=== PATIENT | female | born 1980 | race Caucasian/White ===

== ENCOUNTER 2019-02-07 20:53 | Inpatient (IN) | payer BC ==
[~2019-02-07] VITALS: Ht 165.1 cm; Wt 128.8 kg
[2019-02-07] MEDS ORDERED: CLINDAMYCIN 900 MG/D5W (PMX) 50 ML IVPB STA (21:27)
[2019-02-07] MEDS ORDERED: SODIUM CHLORIDE 0.9% 1L BAG IV* STA (21:27)
[2019-02-07] MEDS ORDERED: VANCOMYCIN 1 GM (PMX) 250 ML IVPB STA (21:27)
[2019-02-07] MEDS ORDERED: PIPER-TAZO 3.375 GM IV (PMX) 100 ML IVPB STA (21:27)
[2019-02-07] MEDS ORDERED: ONDANSETRON 4 MG INJ IV STA (21:27)
[2019-02-07] MEDS ORDERED: morphine 4 MG/ML VIAL IV STA (21:27)
[2019-02-07] MEDS ORDERED: ACETAMINOPHEN 325 MG TAB PO STA (21:27)
[2019-02-07] MEDS ORDERED: ONDANSETRON 4 MG INJ IV PRN (22:30)
[2019-02-07] MEDS ORDERED: ACETAMINOPHEN 325 MG TAB PO PRN (22:30)
--- NOTE | 2019-02-07 22:42 | ERD ---
ER Documentation Chief Complaint Chief Complaint RLE swelling, pain. Pt reports rednessgoing up to thigh HPI 38-year-old female who presents to the emergency room complaining of right lower extremity swelling redness warmth and tenderness. Pain is noted to be 6 out of 10. She notes redness that is streaking up the medial aspect of the upper thigh. Patient denies any wounds or injuries. She does describe a history of lymphedema. Patient is a nondiabetic. Remote history of IV drug abuse but none recently. ROS All systems reviewed and are negative except as per history of present illness. Allergies Allergies: Coded Allergies: Bupivacaine (Verified Allergy, Mild, 07/21/07) Ketorolac (Verified Allergy, Mild, 07/21/07) PMhx/Soc History of Surgery: Yes (, cholecystectomy) Hx Alcohol Use: Yes (daily) Hx Substance Use: Yes (marijuana) Hx Tobacco Use: Yes Smoking Status: Current every day smoker FmHx Family History: No diabetes Physical Exam Vitals Vital Signs Date Temp Pulse Resp B/P (MAP) Pulse Ox O2 O2 Flow FiO2 Time Delivery Rate 02/07/19 98.4 124 20 158/95 97 20:56 (116) Physical Exam General: Well developed, well nourished, no acute distress Head: Normocephalic, atraumatic. Eyes: Pupils equally reactive, EOM intact ENT: Moist mucous membranes Neck: Supple, no lymphadenopathy Respiratory: Lungs clear bilaterally, no distress Cardiovascular: RRR, no murmurs, rubs, or gallops Abdominal: Soft, non-tender, non-distended, no peritoneal signs : Deferred MSK: Right lower extremity has significant lymphedema that is nonpitting with associated erythema warmth and tenderness with lymphangitic spread to the medial aspect of the mid thigh. Patient with difficult to palpate pulses secondary to significant edema but this is consistent bilaterally. No temperature deficit noted. Neurologic: Alert and oriented, moving all extremities, normal speech, no focal weakness, no cerebellar signs Skin: As noted above Psych: Normal mood Result Diagram: 02/07/19212902/07/192129 Results 24 hrs Laboratory Tests Test 02/07/19 21:29 02/07/19 21:30 02/07/19 22:33 POC Beta HCG, Qualitative NEGATIVE White Blood Count 17.1 10^3/ul Red Blood Count 4.43 10^6/ul Hemoglobin 12.2 g/dl Hematocrit 38.1 % Mean Corpuscular Volume 86.0 fl Mean Corpuscular Hemoglobin 27.5 pg Mean Corpuscular 32.0 g/dl Hemoglobin Concent Red Cell Distribution Width 15.9 % Platelet Count 438 10^3/UL Mean Platelet Volume 10.7 fl Immature Granulocytes % 5.500 % Neutrophils % 77.6 % Lymphocytes % 9.5 % Monocytes % 5.0 % Eosinophils % 1.8 % Basophils % 0.6 % Nucleated Red Blood Cells % 0.0 /100WBC Immature Granulocytes # 0.940 10^3/ul Neutrophils # 13.3 10^3/ul Lymphocytes # 1.6 10^3/ul Monocytes # 0.9 10^3/ul Eosinophils # 0.3 10^3/ul Basophils # 0.1 10^3/ul Nucleated Red Blood Cells # 0.0 10^3/ul Prothrombin Time 15.1 Sec Prothrombin Time Ratio 1.2 INR International Normalized Ratio 1.18 Activated Partial Thromboplast 41.2 Sec Time Sodium Level 137 mmol/L Potassium Level 4.0 mmol/L Chloride Level 99 mmol/L Carbon Dioxide Level 27 mmol/L Anion Gap 11 Blood Urea Nitrogen 22 mg/dl Creatinine 0.81 mg/dl Est Glomerular Filtrat Rate mL/min > 60 mL/min Glucose Level 118 mg/dl Calcium Level 8.9 mg/dl C-Reactive Protein Pending POC Venous Lactate 1.4 mmol/L Current Medications Medications Dose Sig/Tyrone Start Time Status Last (Trade) Ordered Route PRN Stop Time Admin Dose Reason Admin 650 mg ONCE STAT 02/07/19 DC 02/07/19 Acetaminophen PO 21:27 21:46 (Tylenol 02/07/19 21:29 Tab) Morphine 4 mg ONCE STAT 02/07/19 DC 02/07/19 Sulfate IV 21:27 21:46 (morphine) 02/07/19 21:29 Ondansetron 4 mg ONCE STAT 02/07/19 DC 02/07/19 HCl (Zofran IV 21:27 21:46 Inj) 02/07/19 21:29 Sodium 1,710 ml BOLUS OVER 2 02/07/19 DC 02/07/19 Chloride HOURS STAT 21:27 21:46 (NS) IV* 02/07/19 21:29 Vancomycin 250 ml @ ONCE STAT 02/07/19 HCl 125 mls/hr IVPB 21:27 02/07/19 23:26 Clindamycin 50 ml @ 50 ONCE STAT 02/07/19 DC 02/07/19 HCl/ mls/hr IVPB 21:27 22:34 Dextrose 02/07/19 22:26 Piperacillin 100 ml @ ONCE STAT 02/07/19 DC 02/07/19 Sod/ 200 mls/hr IVPB 21:27 21:46 Tazobactam 02/07/19 21:56 Sod Ondansetron 4 mg BRIDGE ORDER 02/07/19 HCl (Zofran PRN IV 22:30 Inj) NAUSEA/VOMITI 02/08/19 22:29 NG 650 mg ER BRIDGE 02/07/19 Acetaminophen PRN PO 22:30 (Tylenol .MILD PAIN 02/08/19 22:29 Tab) 1-3 OR TEMP Procedures/MDM EKG, MONITORS, & DIAGNOSTIC IMAGING: X-ray tib-fib: No acute process per radiologist read Right lower extremity duplex: Pending to be followed by admitting team LAB INTERPRETATION: I reviewed the laboratory testing and it shows normal lactic acid MEDICAL DECISION MAKING: Patient with obvious cellulitis of the right lower extremity with lower concern for DVT the ultrasound indicated given unilateral position. Patient with only 1 out of 4 Sirs criteria at triage. Code sepsis was not initiated for this reas on. The patient however was treated appropriately with fluid resuscitation based on ideal body weight ER COURSE: * Blood cultures prior to broad-spectrum antibiotics. A 30 cc/kg bolus of ideal body weight was provided. Analgesics provided. * Patient remains hemodynamically stable and will be admitted for further management. No signs or symptoms concerning for necrotizing fasciitis. CONSULTATION: None DISPOSITION PLAN: Medical surgical admission for management of cellulitis of the right lower extremity Accepting care team and consultations: I discussed the current laboratory data, diagnostic imaging and emergency care provided. Admitting team: Dr. Denis notified via [employer] Admitting team indication: Insurance directed Sepsis Documentation: Patient's infectious symptoms have not stabilized and the patient is at risk of rapid decompensation. The patient will be admitted for careful hydration, antibiotic therapy, and infectious source control. SEVERE SEPSIS CRITERIA: Infectious source: Right lower extremity cellulitis End organ damage indicated by: No criteria met SEPSIS MANAGEMENT Time of recognition of sepsis: Approximately 10:30 PM. Time of recognition of severe sepsis: No severe sepsis at this time. Time of recognition of septic shock: No septic shock at this time. 3 HOUR BUNDLE Blood cultures x 2 before broad-spectrum antibiotics: Yes 30 ml/kg NS bolus completed Initial lactate less than 2 Repeat lactate pending repeat SEPTIC SHOCK ASSESSMENT: No lactic acid > 4.0 No persistent hypotension (SBP < 90 or 40 mmHg drop, MAP < 65) despite 30 mL/kg IV fluid bolus VOLUME REASSESSMENT FOR SEPTIC SHOCK: The patient does not meet criteria for septic shock in the emergency department at this time PERSISTENT HYPOTENSION TREATMENT: Comfort care no Central line not Required Vasopressor started not required I considered further perfusion assessment with CVP measurement, SCVO2, bedside ultrasound volume assessment, passive leg raise, trial of further fluid bolus. And proceeded with 30 ml/kg fluid bolus of NSS, broad spectrum antibiotics, and admission. CRITICAL CARE Critical care time 35 minutes Emergent fluid management while maintaining close respiratory support. Provision of immediate and broad-spectrum antibiotic therapy. Simultaneous ass essment for possible sources in order to direct targeted therapy. Consideration for invasive and chemical support to prevent cardiopulmonary collapse. Critical care time is independent of procedures performed. Departure Diagnosis: Primary Impression: Cellulitis of right lower extremity Additional Impression: Sepsis Sepsis type: sepsis due to unspecified organism Qualified Codes: A41.9 - Sepsis, unspecified organism Condition: Stable ANDREW ANDERS MD February 07, 2019 22:42
[2019-02-07] MEDS ORDERED: HYDROmorphONE 0.5 MG/0.5 ML SYG IV STA (23:17)
[2019-02-08 01:55] VITALS: Ht 165.1 cm; Wt 128.8 kg
[2019-02-08 02:00] VITALS: BP 123/69; PULSE 18; PULSE 96; RESP 18
[2019-02-08] MEDS ORDERED: ONDANSETRON 4 MG INJ IV PRN (03:30)
[2019-02-08] MEDS ORDERED: ACETAMINOPHEN 325 MG TAB PO PRN (03:30)
[2019-02-08] MEDS ORDERED: VANCOMYCIN IV PER PHARMACY XX SCH (03:30)
[2019-02-08] MEDS ORDERED: NACL 0.9% 3 ML SYG IV SCH (03:30)
[2019-02-08] MEDS: SOD CHLORIDE 0.9% 1,000 ML IV SCH ×3 (04:15→21:50)
--- NOTE | 2019-02-08 06:37 | HP ---
Date/Time of Note Date/Time of Note DATE: 02/08/19 TIME: 06:34 Assessment/Plan VTE Prophylaxis Pharmacological prophylaxis: heparin Lines/Catheters IV Catheter Type (from Nrsg): Peripheral IV Assessment/Plan Assessment/Plan 38-year-old female with history of IVDU and skin popping presented with extensive right lower extremity cellulitis and found to be septic, as evidenced by leukocytosis and tachycardia PLAN -IV antibiotic, IV fluid -ID consult -Pain management -Additional imaging as needed -methadone (last time smoked heroin was 2 days ago, last IV 2 months ago) Result Diagram: 02/07/19212902/07/192129 Results 24hrs Laboratory Tests Test 02/07/19 21:29 02/07/19 21:30 02/07/19 22:33 02/08/19 01:03 POC Beta HCG, NEGATIVE Qualitative White Blood Count 17.1 H Red Blood Count 4.43 Hemoglobin 12.2 Hematocrit 38.1 Mean Corpuscular 86.0 Volume Mean Corpuscular 27.5 L Hemoglobin Mean Corpuscular 32.0 Hemoglobin Concent Red Cell 15.9 H Distribution Width Platelet Count 438 H Mean Platelet Volume 10.7 H Immature 5.500 H Granulocytes % Neutrophils % 77.6 H Lymphocytes % 9.5 L Monocytes % 5.0 Eosinophils % 1.8 Basophils % 0.6 Nucleated Red Blood 0.0 Cells % Immature 0.940 H Granulocytes # Neutrophils # 13.3 H Lymphocytes # 1.6 Monocytes # 0.9 Eosinophils # 0.3 Basophils # 0.1 Nucleated Red Blood 0.0 Cells # Erythrocyte 81 H Sedimentation Rate Prothrombin Time 15.1 H Prothrombin Time 1.2 Ratio INR International 1.18 Normalized Ratio Activated 41.2 H Partial Thromboplast Time Sodium Level 137 Potassium Level 4.0 Chloride Level 99 Carbon Dioxide Level 27 Anion Gap 11 Blood Urea Nitrogen 22 H Creatinine 0.81 Est Glomerular > 60 Filtrat Rate mL/min Glucose Level 118 Calcium Level 8.9 C-Reactive Protein 42.8 H POC Venous Lactate 1.4 Lactic Acid Level 1.9 Test 02/08/19 02:30 Lactic Acid Level 1.2 HPI/ROS Admit Date/Time Admit Date/Time February 07, 2019 at 22:30 Hx of Present Illness This is a 38-year-old female with no significant past medical history who presented to ER complaining of right lower extremity swelling, tenderness and erythema. Symptoms have been progressively getting worse for the past few days. When she presented to ER, she was tachycardic with a heart rate in the 120s, but afebrile. WBC 17,000. CRP 43. Lower extremity venous study negative for DVT. Right tibia/fibula x-ray without acute findings. PMH/Family/Social Past Medical History Medical History: other (see hpi) Medications Current Medications Ondansetron HCl (Zofran Inj) 4 mg BRIDGE ORDER PRN IV NAUSEA/VOMITING; Start 02/07/19 at 22:30; Stop 02/08/19 at 22:29 Acetaminophen (Tylenol Tab) 650 mg ER BRIDGE PRN PO .MILD PAIN 1-3 OR TEMP; Start 02/07/19 at 22:30; Stop 02/08/19 at 22:29 Sodium Chloride 1,000 ml @ 100 mls/hr Q10H IV Last administered on 02/08/19at 04:15; Admin Dose 100 MLS/HR; Start 02/08/19 at 03:04 IV Flush (NS 3 ml) 3 ml PER PROTOCOL IV ; Start 02/08/19 at 03:30 Ondansetron HCl (Zofran Inj) 4 mg Q6H PRN IV NAUSEA/VOMITING; Start 02/08/19 at 03:30 Acetaminophen (Tylenol Tab) 650 mg Q6H PRN PO .PAIN 1-3 OR TEMP; Start 02/08/19 at 03:30 Enoxaparin Sodium (Lovenox) 40 mg DAILY SC ; Start 02/08/19 at 09:00 Vancomycin HCl (Vanco Iv Per Pharmacy) VANCOMYCIN PER PHARMACY PER PROTOCOL XX ; Start 02/08/19 at 03:30 Cefepime HCl 50 ml @ 100 mls/hr Q12 IVPB ; Start 02/08/19 at 09:00 Vancomycin HCl 1.5 gm/Sodium Chloride 250 ml @ 83.333 mls/ hr Q12H IVPB ; Start 02/08/19 at 10:00 Coded Allergies: Bupivacaine (Verified Allergy, Mild, 07/21/07) Ketorolac (Verified Allergy, Mild, 07/21/07) Past Surgical History Past Surgical Hx: other (see hpi) Family History Significant Family History: no pertinent family hx Social History Alcohol Use: occasionally Smoking Status: Current every day smoker Drug Use: heroin Exam/Review of Systems Vital Signs Vitals Vital Signs Date Temp Pulse Resp B/P (MAP) Pulse Ox O2 O2 Flow FiO2 Time Delivery Rate 02/08/19 98.0 96 18 123/69 97 Room Air 02:00 (87) Intake and Output 02/07/19 02/07/19 02/08/19 1515:00 23:00 07:00 IntakeIntake Total 75 ml BalanceBalance 75 ml Exam Constitutional: distress Head: normocephalic, atraumatic Eyes: EOMI, PERRL Respiratory: clear to auscultation, normal air movement Cardiovascular: regular rate and rhythm, nl pulses Gastrointestinal: soft Extremities: other (right mayer erythema, tenderness. both tighes swollen) KEN GUTIÉRREZ MD February 08, 2019 06:37
[2019-02-08 08:34] VITALS: BP 126/72; PULSE 99; RESP 17
[2019-02-08] MEDS: ENOXAPARIN 40 MG/0.4 ML SYG SC SCH (09:14)
[2019-02-08] MEDS: CEFEPIME 1GM/50 ML (PMX) 50 ML IVPB SCH ×2 (09:14→20:18)
[2019-02-08] MEDS: VANCOMYCIN HCL 1.5 GM in SOD CHLORIDE 0.9% 250 ML IVPB SCH ×2 (10:16→21:50)
--- NOTE | 2019-02-08 10:48 | PN ---
Date/Time of Note Date/Time of Note DATE: 02/08/19 TIME: 10:46 Assessment/Plan VTE Prophylaxis SCD contraindicated: low risk/ambulating Pharmacological prophylaxis: LMWH Lines/Catheters IV Catheter Type (from Nrsg): Peripheral IV Assessment/Plan Hospital Course Assessment and plan 1. Right lower extremity cellulitis, likely staph, stable continue bank 2. Sirs due to cellulitis with leukocytosis/ tachycardia stable treat possible sepsis 3. Past substance abuse/heroin? 4. Tobacco abuse offer patch 5. History of nephrolithiasis 6. Obesity disorder 7. Mood disorder nonadherence? 8. Anemia Subjective: Lethargic mild pain no fever nausea vomiting. Denies any history of kidney or liver trouble. Objective: Vital signs stable Physical exam No pallor icterus adenopathy Regular tachycardic no m/r/g Clear Benign overweight Right and left lower extremity edema. Right lower extremity with erythema from toes to calf. Mild warmth Result Diagram: 02/08/19 0924 02/08/19 0924 Results 24hrs Laboratory Tests Test 02/07/19 21:29 02/07/19 21:30 02/07/19 22:33 02/08/19 01:03 POC Beta HCG, NEGATIVE Qualitative White Blood Count 17.1 H Red Blood Count 4.43 Hemoglobin 12.2 Hematocrit 38.1 Mean Corpuscular 86.0 Volume Mean Corpuscular 27.5 L Hemoglobin Mean Corpuscular 32.0 Hemoglobin Concent Red Cell 15.9 H Distribution Width Platelet Count 438 H Mean Platelet Volume 10.7 H Immature 5.500 H Granulocytes % Neutrophils % 77.6 H Lymphocytes % 9.5 L Monocytes % 5.0 Eosinophils % 1.8 Basophils % 0.6 Nucleated Red Blood 0.0 Cells % Immature 0.940 H Granulocytes # Neutrophils # 13.3 H Lymphocytes # 1.6 Monocytes # 0.9 Eosinophils # 0.3 Basophils # 0.1 Nucleated Red Blood 0.0 Cells # Erythrocyte 81 H Sedimentation Rate Prothrombin Time 15.1 H Prothrombin Time 1.2 Ratio INR International 1.18 Normalized Ratio Activated 41.2 H Partial Thromboplast Time Sodium Level 137 Potassium Level 4.0 Chloride Level 99 Carbon Dioxide Level 27 Anion Gap 11 Blood Urea Nitrogen 22 H Creatinine 0.81 Est Glomerular > 60 Filtrat Rate mL/min Glucose Level 118 Calcium Level 8.9 C-Reactive Protein 42.8 H POC Venous Lactate 1.4 Lactic Acid Level 1.9 Test 02/08/19 02:30 02/08/19 09:24 Lactic Acid Level 1.2 White Blood Count 14.9 H Red Blood Count 4.18 L Hemoglobin 11.6 L Hematocrit 36.8 L Mean Corpuscular 88.0 Volume Mean Corpuscular 27.8 L Hemoglobin Mean Corpuscular 31.5 L Hemoglobin Concent Red Cell 16.3 H Distribution Width Platelet Count 353 Mean Platelet Volume 11.2 H Immature 2.800 H Granulocytes % Neutrophils % 78.7 H Lymphocytes % 10.8 L Monocytes % 4.4 Eosinophils % 2.4 Basophils % 0.9 Nucleated Red Blood 0.0 Cells % Immature 0.420 H Granulocytes # Neutrophils # 11.7 H Lymphocytes # 1.6 Monocytes # 0.7 Eosinophils # 0.4 Basophils # 0.1 Nucleated Red Blood 0.0 Cells # Sodium Level 138 Potassium Level 4.9 Chloride Level 105 Carbon Dioxide Level 27 Anion Gap 6 Blood Urea Nitrogen 19 Creatinine 0.57 Est Glomerular > 60 Filtrat Rate mL/min Glucose Level 139 Calcium Level 8.2 L Phosphorus Level 5.3 H Magnesium Level 2.2 Total Bilirubin 0.4 Direct Bilirubin 0.00 Indirect Bilirubin 0.4 Aspartate Amino 36 Transf (AST/SGOT) Alanine 14 Aminotransferase (AL T/SGPT) Alkaline Phosphatase 497 H Total Protein 7.3 Albumin 3.1 L Globulin 4.20 H Albumin/Globulin 0.73 Ratio Triglycerides Level 167 H Cholesterol Level 107 LDL Cholesterol, 61 Calculated HDL Cholesterol 13 L Cholesterol/HDL 8.2 Ratio Exam/Review of Systems Exam Vitals Vital Signs Date Temp Pulse Resp B/P (MAP) Pulse Ox O2 O2 Flow FiO2 Time Delivery Rate 02/08/19 98.8 99 17 126/72 92 08:34 (90) 02/08/19 Room Air 02:00 Intake and Output 02/07/19 02/07/19 02/08/19 1515:00 23:00 07:00 IntakeIntake Total 75 ml BalanceBalance 75 ml Results Results 24hrs Laboratory Tests Test 02/07/19 21:29 02/07/19 21:30 02/07/19 22:33 02/08/19 01:03 POC Beta HCG, NEGATIVE Qualitative White Blood Count 17.1 H Red Blood Count 4.43 Hemoglobin 12.2 Hematocrit 38.1 Mean Corpuscular 86.0 Volume Mean Corpuscular 27.5 L Hemoglobin Mean Corpuscular 32.0 Hemoglobin Concent Red Cell 15.9 H Distribution Width Platelet Count 438 H Mean Platelet Volume 10.7 H Immature 5.500 H Granulocytes % Neutrophils % 77.6 H Lymphocytes % 9.5 L Monocytes % 5.0 Eosinophils % 1.8 Basophils % 0.6 Nucleated Red Blood 0.0 Cells % Immature 0.940 H Granulocytes # Neutrophils # 13.3 H Lymphocytes # 1.6 Monocytes # 0.9 Eosinophils # 0.3 Basophils # 0.1 Nucleated Red Blood 0.0 Cells # Erythrocyte 81 H Sedimentation Rate Prothrombin Time 15.1 H Prothrombin Time 1.2 Ratio INR International 1.18 Normalized Ratio Activated 41.2 H Partial Thromboplast Time Sodium Level 137 Potassium Level 4.0 Chloride Level 99 Carbon Dioxide Level 27 Anion Gap 11 Blood Urea Nitrogen 22 H Creatinine 0.81 Est Glomerular > 60 Filtrat Rate mL/min Glucose Level 118 Calcium Level 8.9 C-Reactive Protein 42.8 H POC Venous Lactate 1.4 Lactic Acid Level 1.9 Test 02/08/19 02:30 02/08/19 09:24 Lactic Acid Level 1.2 White Blood Count 14.9 H Red Blood Count 4.18 L Hemoglobin 11.6 L Hematocrit 36.8 L Mean Corpuscular 88.0 Volume Mean Corpuscular 27.8 L Hemoglobin Mean Corpuscular 31.5 L Hemoglobin Concent Red Cell 16.3 H Distribution Width Platelet Count 353 Mean Platelet Volume 11.2 H Immature 2.800 H Granulocytes % Neutrophils % 78.7 H Lymphocytes % 10.8 L Monocytes % 4.4 Eosinophils % 2.4 Basophils % 0.9 Nucleated Red Blood 0.0 Cells % Immature 0.420 H Granulocytes # Neutrophils # 11.7 H Lymphocytes # 1.6 Monocytes # 0.7 Eosinophils # 0.4 Basophils # 0.1 Nucleated Red Blood 0.0 Cells # Sodium Level 138 Potassium Level 4.9 Chloride Level 105 Carbon Dioxide Level 27 Anion Gap 6 Blood Urea Nitrogen 19 Creatinine 0.57 Est Glomerular > 60 Filtrat Rate mL/min Glucose Level 139 Calcium Level 8.2 L Phosphorus Level 5.3 H Magnesium Level 2.2 Total Bilirubin 0.4 Direct Bilirubin 0.00 Indirect Bilirubin 0.4 Aspartate Amino 36 Transf (AST/SGOT) Alanine 14 Aminotransferase (AL T/SGPT) Alkaline Phosphatase 497 H Total Protein 7.3 Albumin 3.1 L Globulin 4.20 H Albumin/Globulin 0.73 Ratio Triglycerides Level 167 H Cholesterol Level 107 LDL Cholesterol, 61 Calculated HDL Cholesterol 13 L Cholesterol/HDL 8.2 Ratio Medications Medication Current Medications Ondansetron HCl (Zofran Inj) 4 mg BRIDGE ORDER PRN IV NAUSEA/VOMITING; Start 02/07/19 at 22:30; Stop 02/08/19 at 22:29 Acetaminophen (Tylenol Tab) 650 mg ER BRIDGE PRN PO .MILD PAIN 1-3 OR TEMP; Start 02/07/19 at 22:30; Stop 02/08/19 at 22:29 Sodium Chloride 1,000 ml @ 100 mls/hr Q10H IV Last administered on 02/08/19at 04:15; Admin Dose 100 MLS/HR; Start 02/08/19 at 03:04 IV Flush (NS 3 ml) 3 ml PER PROTOCOL IV ; Start 02/08/19 at 03:30 Ondansetron HCl (Zofran Inj) 4 mg Q6H PRN IV NAUSEA/VOMITING; Start 02/08/19 at 03:30 Acetaminophen (Tylenol Tab) 650 mg Q6H PRN PO .PAIN 1-3 OR TEMP; Start 02/08/19 at 03:30 Enoxaparin Sodium (Lovenox) 40 mg DAILY SC Last administered on 02/08/19at 09:14; Admin Dose 40 MG; Start 02/08/19 at 09:00 Vancomycin HCl (Vanco Iv Per Pharmacy) VANCOMYCIN PER PHARMACY PER PROTOCOL XX ; Start 02/08/19 at 03:30 Cefepime HCl 50 ml @ 100 mls/hr Q12 IVPB Last administered on 02/08/19at 09:14; Admin Dose 100 MLS/HR; Start 02/08/19 at 09:00 Vancomycin HCl 1.5 gm/Sodium Chloride 250 ml @ 83.333 mls/ hr Q12H IVPB Last administered on 02/08/19at 10:16; Admin Dose 83.333 MLS/HR; Start 02/08/19 at 10:00 LUIS F BRANTLEY MD February 08, 2019 10:48
[2019-02-08] MEDS ORDERED: KETOROLAC 30 MG INJ IV PRN (11:00)
[2019-02-08] MEDS ORDERED: DIPHTH/TET/ACEL PERTUSS (ADULT) 0.5 ML VIAL IM* ONE (13:00)
[2019-02-08 14:00] VITALS: BP 122/64; PULSE 106; RESP 18
[2019-02-08] MEDS: LORAZEPAM 1 MG TAB PO PRN (17:45)
[2019-02-08 20:00] VITALS: BP 128/71; PULSE 103; RESP 17
[2019-02-08] MEDS: LACTOBACILLUS RHAMNOSUS CAP PO SCH (20:18)
[2019-02-09] MEDS ORDERED: CLONIDINE 0.1 MG/24 HR PATCH TRANSDERM SCH
[2019-02-09] MEDS: LORAZEPAM 1 MG TAB PO PRN (00:51)
--- NOTE | 2019-02-09 01:19 | CONS ---
DATE OF ADMISSION: 02/07/2019 DATE OF CONSULTATION: 02/08/2019 Infectious disease consultation for Dr. Skip Arriaza. REQUESTING PHYSICIAN: Ken Gutiérrez M.D. HISTORY OF PRESENT ILLNESS: The patient is a 38-year-old white female who was admitted on 02/07/2019 with a chief complaint of swelling and redness of the right lower extremity with streaking upwards o n the medial aspect of the right upper thigh. The patient has had a history of lymphedema and also i njection of heroin into her anterior thigh in the past. Her pain was described as 6/10. Her white b lood cell count on admission was 17,100 with 78 polys, 10 lymphs, 5 monocytes, 2 eosinophils and 12.5 grams of hemoglobin and platelets of 438,000. Her temperature was 98.4, pulse was 124, respirations 20, blood pressure 158/95 and pulse oximetry was 97% on room air. PAST MEDICAL HISTORY: Has a past history of drug use. ALLERGIES: SHE IS ALLERGIC TO KETOROLAC. PAST SURGICAL HISTORY: Surgeries include and cholecystectomy. MEDICATIONS: Regular medications include: 1. Famotidine 20 mg daily. 2. Lorazepam 1 mg daily. PHYSICAL EXAMINATION: GENERAL: Reveals a morbidly obese white female lying in bed with the head of her bed elevated and th e foot of her bed declined by about 15 degrees complaining of pain in her right lower extremity. VITAL SIGNS: Blood pressure is 128/71, respirations 17, temperature is 98.5, pulse rate is 103 and h er pulse oximetry is 94% on room air. HEENT: Mucous membranes of the mouth are moist. Pupils are in mid position and reactive. There is no scleral icterus. NECK: Supple, no jugular venous distention. CHEST: Clear to auscultation. No murmur, no rub. HEART: Rapid and regular. No murmur. ABDOMEN: Obese, soft, no palpable organs or masses. EXTREMITIES: Right lower extremity reveals diffuse swelling and erythema with a serpiginous tongues spreading up her right thigh. There is a +4 edema of her right foot. The anterior thigh has an appa rent scar tissue, which she has been injecting but does not look current, fresh or red. NEUROLOGIC: Within normal limits. INITIAL IMPRESSION: 1. Systemic inflammatory response. 2. Cellulitis, right lower extremity. 3. Lymphedema. 4. Morbid obesity. 5. History of opioid addiction. RECOMMENDATIONS: Discontinue the cefepime, continue the vancomycin pending culture and sensitivity r esults and add cefazolin for the 1 gram IV q.8h. pending culture results. Thank you Dr. Gutiérrez for referring this interesting patient to Dr. Arriaza. Dictated By: Magdiel ZENDEJAS MD EC/NTS Conf#: [id number] DID#: [id number] CC: LUIS F BRANTLEY MD; KEN GUTIÉRREZ MD;*EndCC*
[2019-02-09 02:00] VITALS: BP 141/73; PULSE 96; RESP 17
[2019-02-09 08:27] VITALS: BP 135/86; PULSE 82; RESP 18
[2019-02-09] MEDS: LACTOBACILLUS RHAMNOSUS CAP PO SCH (08:41)
[2019-02-09] MEDS: ENOXAPARIN 40 MG/0.4 ML SYG SC SCH (08:42)
[2019-02-09] MEDS ORDERED: FAMOTIDINE 20 MG TAB PO SCH (09:00)
[2019-02-09] MEDS: VANCOMYCIN HCL 1.5 GM in SOD CHLORIDE 0.9% 250 ML IVPB SCH (09:53)
[2019-02-09] MEDS ORDERED: CEPH500C PO (14:19)
--- NOTE | 2019-02-09 14:23 | PN ---
Date/Time of Note Date/Time of Note DATE: 02/09/19 TIME: 14:20 Assessment/Plan VTE Prophylaxis Risk score (from Ns)>0 risk: 4 SCD applied (from Ns): Yes Pharmacological prophylaxis: LMWH Lines/Catheters IV Catheter Type (from Nrs): Peripheral IV Assessment/Plan Assessment/Plan 1. Right lower extremity cellulitis- improving - per patient, significantly improved and no tenderness noted - Will transition to PO antibiotics and d/c home 2. Sirs due to cellulitis - improving. WBC trending down and remains afebrile 3. Past substance abuse/heroin? 4. Tobacco abuse - counseling offered 5. History of nephrolithiasis - stable 6. Obesity disorder 7. Disposition - Medically stable for discharge home Result Diagram: 02/08/1992302/08/19923 Results 24hrs Laboratory Tests Test 02/08/19 23:05 02/09/19 04:30 Bedside Glucose 104 Urine Opiates Screen Positive Urine Barbiturates Negative Urine Amphetamines Screen POSITIVE Urine Benzodiazepines Screen Positive Urine Cocaine Screen Negative Urine Cannabinoids Positive Subjective 24 Hr Interval Summary Free Text/Dictation Patient is doing significantly better and requesting to go home. No acute overnight events. Exam/Review of Systems Exam Vitals Vital Signs Date Temp Pulse Resp B/P (MAP) Pulse Ox O2 O2 Flow FiO2 Time Delivery Rate 02/09/19 98.0 82 18 135/86 99 08:27 (102) 02/08/19 Room Air 02:00 Intake and Output 02/08/19 02/08/19 02/09/19 1515:00 23:00 07:00 IntakeIntake Total 900 ml 1575 ml 980 ml BalanceBalance 900 ml 1575 ml 980 ml Exam General: No acute distress. awake and answering questions appropriately Neck: Supple Chest: Nontender Lungs: Clear to auscultation bilaterally, no wheezing or rhonchi Heart: Normal S1-S2, Regular rhythm and rate. No murmur, S3, or S4 Abdomen: Soft , nontender, nondistended , bowel sounds are present. No guarding no rebound tenderness Skin: erythema RLE with mild warmth, no discharge or drainage. non tender Results Results 24hrs Laboratory Tests Test 02/08/19 23:05 02/09/19 04:30 Bedside Glucose 104 Urine Opiates Screen Positive Urine Barbiturates Negative Urine Amphetamines Screen POSITIVE Urine Benzodiazepines Screen Positive Urine Cocaine Screen Negative Urine Cannabinoids Positive Medications Medication Current Medications IV Flush (NS 3 ml) 3 ml PER PROTOCOL IV ; Start 02/08/19 at 03:30 Ondansetron HCl (Zofran Inj) 4 mg Q6H PRN IV NAUSEA/VOMITING; Start 02/08/19 at 03:30 Acetaminophen (Tylenol Tab) 650 mg Q6H PRN PO .PAIN 1-3 OR TEMP; Start 02/08/19 at 03:30 Enoxaparin Sodium (Lovenox) 40 mg DAILY SC Last administered on 02/09/19at 08:42; Admin Dose 40 MG; Start 02/08/19 at 09:00 Vancomycin HCl (Vanco Iv Per Pharmacy) VANCOMYCIN PER PHARMACY PER PROTOCOL XX ; Start 02/08/19 at 03:30 Vancomycin HCl 1.5 gm/Sodium Chloride 250 ml @ 83.333 mls/ hr Q12H IVPB Last administered on 02/09/19at 09:53; Admin Dose 83.333 MLS/HR; Start 02/08/19 at 10:00 Lactobacillus Acidophilus/ Rhamnosus (Culturelle) 1 cap BID PO Last administered on 02/09/19 08:41; Admin Dose 1 CAP; Start 02/08/19 at 21:00 Famotidine (Pepcid) 20 mg DAILY PO Last administered on 02/09/19at 08:41; Admin Dose 20 MG; Start 02/09/19 at 09:00 Miscellaneous Information (*Rx Drug Level Order Reminder*) VANCO TR LEVEL PRIOR... 2100 ONCE XX ; Start 02/09/19 at 21:00; Stop 02/09/19 at 21:01 Lorazepam (Ativan) 1 mg Q4H PRN PO ANXIETY Last administered on 02/09/19at 00:51; Admin Dose 1 MG; Start 02/08/19 at 14:00 Clonidine HCl (Catapres-Tts 1 Patch) 1 patch Q7D TRANSDERM Last administered on 02/09/19at 00:41; Admin Dose 1 PATCH; Start 02/09/19 at 00:00 MARIZOL CRUZ MD February 09, 2019 14:23
--- NOTE | 2019-02-09 14:25 | PDOCDIS ---
Discharge Instructions DIAGNOSIS Discharge Diagnosis 1. Right lower extremity cellulitis- improving 2. Sirs due to cellulitis - improving 3. Tobacco abuse offer patch 4. History of nephrolithiasis 5. Anemia CONDITION [id number] Patient Condition: [id number] Stable HOME CARE INSTRUCTIONS: [id number] Diet Instructions: [id number] Low Fat /Cholesterol FOLLOW UP/APPOINTMENTS Follow-up Plan 1. Follow up with your primary care physician in 1-2 weeks 2. Continue taking Keflex 500mg twice a day with your next dose jesika 02/09 3. Keep leg elevated while sitting to avoid swelling 4. If symptoms worsen, please go to your closest emergency department MARIZOL CRUZ MD February 09, 2019 14:25
[2019-02-09 14:33] VITALS: BP 134/79; PULSE 89; RESP 19
--- NOTE | 2019-02-09 17:31 | DS ---
Date/Time of Note Date/Time of Note DATE: 02/09/19 TIME: 17:29 Discharge Summary Admission/Discharge Info Admit Date/Time February 07, 2019 at 22:30 Discharge Date/Time February 09, 2019 at 15:55 Discharge Diagnosis 1. Right lower extremity cellulitis- improving 2. Sirs due to cellulitis - improving 3. Tobacco abuse offer patch 4. History of nephrolithiasis 5. Anemia Patient Condition: Stable Consults Infectious disease- Dr. Murrell Hx of Present Illness 38-year-old female with history of IVDU and skin popping presented with extensive right lower extremity cellulitis and found to be septic, as evidenced by leukocytosis and tachycardia. PLAN -IV antibiotic, IV fluid -ID consult -Pain management -Additional imaging as needed -methadone (last time smoked heroin was 2 days ago, last IV 2 months ago) Hospital Course Patient was admitted for treatment of sepsis secondary to cellulitis and started on IV antibiotics. ID was consulted for antibiotic recommendations. Cultures were obtained which resulted as negative. Patients cellulitis was improving and pain resolving. She requested to continue treatment as outpatient. She was transitioned to PO antibiotics given WBC was decreasing and remained afebrile and d/c home in stable condition. Home Meds Active Scripts Cephalexin* (Cephalexin*) 500 Mg Capsule, 500 MG PO BID, #14 CAP Prov:MARIZOL CRUZ MD 02/09/19 Follow-up Plan 1. Follow up with your primary care physician in 1-2 weeks 2. Continue taking Keflex 500mg twice a day with your next dose tonight, 02/09 3. Keep leg elevated while sitting to avoid swelling 4. If symptoms worsen, please go to your closest emergency department Primary Care Provider Not On Staff Doctor Time spent on discharge: > 30 minutes Pending Labs Laboratory Tests Test 02/08/19 23:05 02/09/19 04:30 Bedside Glucose 104 mg/dL (70-220) Urine Opiates Screen Positive (NEGATIVE) Urine Barbiturates Negative (NEGATIVE) Urine Amphetamines Screen POSITIVE (NEGATIVE) Urine Benzodiazepines Screen Positive (NEGATIVE) Urine Cocaine Screen Negative (NEGATIVE) Urine Cannabinoids Positive (NEGATIVE) MARIZOL CRUZ MD February 09, 2019 17:31
== END 2019-02-09 15:55 | disposition home or self-care (01) | DRG 872 ==
LOC: E/R 20:53 → PP2 22:30
PROVIDERS: ADMIT Internal Medicine; ATTEND Internal Medicine
DX: A41.9 Sepsis, unspecified organism (principal); L03.115 Cellulitis of right lower limb; Z68.42 Body mass index [BMI] 45.0-49.9, adult; D64.9 Anemia, unspecified; E66.01 Morbid (severe) obesity due to excess calories; F39 Unspecified mood [affective] disorder; F17.200 Nicotine dependence, unspecified, uncomplicated; Z87.442 Personal history of urinary calculi
CPT/HCPCS: 36415; 73590; 80048; 80053; 80061; 80307; 81025; 82962; 83605; 83735; 84100; 85025; 85610; 85651; 85730; 86140; 87081; 90715; 93971; 96374; 96375; J0692; J1170; J1650; J2270; J2405; J2543; J3370; J7030; J7050

== ENCOUNTER 2019-03-26 19:37 | Emergency (ER) | payer BC ==
[~2019-03-26] VITALS: Ht 165.1 cm; Wt 117.2 kg
[~2019-03-26 19:37] MED LIST: CEPH500C PO
[2019-03-26 19:40] VITALS: Ht 165.1 cm; Wt 117.2 kg
[2019-03-26] MEDS ORDERED: SULF1TAB31 PO (20:14)
[2019-03-26] MEDS ORDERED: FURO-109 PO (20:14)
[2019-03-26] MEDS ORDERED: CEPH-443 PO (20:14)
[2019-03-26 20:33] VITALS: BP 145/82; PULSE 80; RESP 20
--- NOTE | 2019-03-26 23:10 | ERD ---
ER Documentation Chief Complaint Chief Complaint RLE is red, swollen, and painful, admitted 3wks ago for fluid overload HPI Patient is a 38-year-old female with possible CHF and hepatitis C who presents with right lower externally redness. The patient has had right lower extremity redness and was previous on clindamycin. She finished a course of clindamycin and after 2 weeks the redness to the anterior right mayer came back. She has no other complaints. She has no fevers. She has had no treatment since the antibiotics previously. ROS All systems reviewed and are negative except as per history of present illness. Medications Home Meds Active Scripts Cephalexin* (Keflex*) 500 Mg Capsule, 500 MG PO QID for 7 Days, CAP Prov:SHAKIR WEIR MD 03/26/19 Sulfamethoxazole/Trimethoprim* (Bactrim Ds* Tablet) 1 Each Tablet, 1 TAB PO BID, #14 TAB Prov:SHAKIR WEIR MD 03/26/19 Furosemide* (Lasix*) 40 Mg Tablet, 40 MG PO DAILY, #30 TAB Prov:SHAKIR WEIR MD 03/26/19 Cephalexin* (Cephalexin*) 500 Mg Capsule, 500 MG PO BID, #14 CAP Prov:MARIZOL CRUZ MD 02/09/19 Allergies Allergies: Coded Allergies: Bupivacaine (Verified Allergy, Mild, 07/21/07) Ketorolac (Verified Allergy, Mild, 07/21/07) PMhx/Soc History of Surgery: Yes Anesthesia Reaction: No Hx Neurological Disorder: No Hx Respiratory Disorders: No Hx Cardiac Disorders: No Hx Psychiatric Problems: No Hx Miscellaneous Medical Probl: Yes Hx Alcohol Use: Yes Hx Substance Use: Yes Hx Tobacco Use: Yes Smoking Status: Never smoker FmHx Family History: No diabetes Physical Exam Vitals Vital Signs Date Temp Pulse Resp B/P (MAP) Pulse Ox O2 O2 Flow FiO2 Time Delivery Rate 03/26/19 98.0 80 20 145/82 98 Room Air 20:33 (103) 03/26/19 98.0 81 20 155/81 98 Room Air 20:04 (105) 03/26/19 98.0 115 20 167/78 98 19:40 (107) Physical Exam Const: No acute distress Head: Atraumatic Eyes: Normal Conjunctiva ENT: Normal External Ears, Nose and Mouth. Neck: Full range of motion. No meningismus. Resp: Clear to auscultation bilaterally Cardio: Regular rate and rhythm, no murmurs Abd: Soft, non tender, non distended. Normal bowel sounds Skin: Redness to the right anterior mayer without sign of abscess Back: No midline or flank tenderness Ext: No cyanosis, or edema Neur: Awake and alert Psych: Normal Mood and Affect Procedures/MDM Patient is a 38-year-old female presents with acute right lower semi-cellulitis. There is no sign of abscess. I doubt sepsis. She is otherwise well-appearing. She wants a prescription for Lasix as well which I will prescribe. The patient will be treated with Bactrim and Keflex for 1 week. She went to follow-up with her primary doctor within 24 to 48 hours for repeat evaluation. She can return sooner for any worsening symptoms. Departure Diagnosis: Primary Impression: Cellulitis Site of cellulitis: extremity Site of cellulitis of extremity: lower extremity Laterality: right Qualified Codes: L03.115 - Cellulitis of right lower limb Condition: Fair Patient Instructions: Cellulitis Referrals: [facility] YOU HAVE RECEIVED A MEDICAL SCREENING EXAM AND THE RESULTS INDICATE THAT YOU DO NOT HAVE A CONDITION THAT REQUIRES URGENT TREATMENT IN THE EMERGENCY DEPARTMENT. FURTHER EVALUATION AND TREATMENT OF YOUR CONDITION CAN WAIT UNTIL YOU ARE SEEN IN YOUR DOCTORS OFFICE WITHIN THE NEXT 1-2 DAYS. IT IS YOUR RESPONSIBILITY TO MAKE AN APPOINTMENT FOR FOLOW-UP CARE. IF YOU HAVE A PRIMARY DOCTOR --you should call your primary doctor and schedule an appointment IF YOU DO NOT HAVE A PRIMARY DOCTOR YOU CAN CALL OUR PHYSICIAN REFERRAL HOTLINE AT IF YOU CAN NOT AFFORD TO SEE A PHYSICIAN YOU CAN CHOSE FROM THE FOLLOWING [facility] [address] [address]. [facility] [address] [facility] [address] [facility] [facility] [address] [facility]. [facility] [address]. [facility]. [address] Additional Instructions: Call your primary care doctor TOMORROW for an appointment during the next 1 WEEK.Tell the legal secretary that you were referred from this facility.See the doctor sooner or return here if your condition worsens before your appointment time. SHAKIR WEIR MD Mar 26, 2019 23:10
== END 2019-03-26 20:49 | disposition home or self-care (01) ==
LOC: E/R 19:37
DX: L03.115 Cellulitis of right lower limb (principal); Z87.891 Personal history of nicotine dependence
CPT/HCPCS: 99283